=== PATIENT | male | born 1970 | race Caucasian/White ===

== ENCOUNTER 2022-01-06 05:59 | Day surgery (SDC) | payer OTHER, SELFPAY ==
[~2022-01-06] VITALS: Ht 177.8 cm; Wt 66.2 kg
[2022-01-06] MEDS ORDERED: fentaNYL citrate 0.05 MG/ML VIAL ONE (08:47)
[2022-01-06] MEDS ORDERED: LIDOCAINE 2% 100 MG/5 ML UJET TP ONE (08:47)
[2022-01-06] MEDS ORDERED: fentaNYL citrate 0.05 MG/ML VIAL IVP ONE (09:55)
== END 2022-01-06 10:22 | disposition home or self-care (01) ==
LOC: MDS 05:59 → MMU 06:00 → MDS 10:22
PROVIDERS: ATTEND Internal Medicine Gastroenterology
DX: Z12.11 Encounter for screening for malignant neoplasm of colon (principal); J45.909 Unspecified asthma, uncomplicated; Z88.0 Allergy status to penicillin
CPT/HCPCS: 45378; 87426; J3010